=== PATIENT | male | born 1990 | race Caucasian/White ===

== ENCOUNTER 2017-10-26 13:25 | Emergency (ER) | payer SELFPAY ==
[~2017-10-26] VITALS: Ht 172.7 cm; Wt 173.0 kg
[2017-10-26 13:28] VITALS: TEMP 36.8; Ht 172.7 cm; Wt 173.0 kg
--- NOTE | 2017-10-26 14:27 | EMERGENCY ROOM VISIT NOTE ---
History First contact with patient: 13:56 Chief Complaint: FLU LIKE SX Stated Complaint: COUGH,RUNNY NOSE,SORE RIBS History of Present Illness The patient is a 27 year old male who presents to the Emergency Room with complaints of cough 1 week. The patient reports that he has had a persistent cough for the past week, worsening over the past 2 days. The patient states that he has been having coughing fits and has a hard time catching his breath when this occurs. He reports pain throughout his back when he coughs. There is no pain at rest. The cough is worse when he is lying down or sitting. He is a smoker but states that he has not smoked any cigarettes since this began. He does report intermittent fevers, especially in the morning. The cough has occasionally been productive of a small amount of phlegm. He began taking Mucinex yesterday. He has been taking NyQuil without relief. He rates the overall discomfort a 4/10. He denies earaches, sore throat, headache, neck pain , body aches or shortness of breath. He did not receive a flu vaccine this year. He does reports that several family members are sick with similar symptoms. He denies any history of asthma or COPD. Review of Systems A complete 10 point review of systems was reviewed with the patient with pertinent positives and negatives as per history of present illness. All else were negative. Past Medical/Surgical History Medical Problems: (1) No significant past medical history Surgical Problems: (1) No significant past surgical history Social History Smoking Status: Current Every Day Smoker Alcohol Use: occasionally Marital Status: in relationship Housing Status: lives with family Occupation Status: employed Current/Historical Medications Scheduled Benzonatate (Tessalon Perles), 1 CAP PO TID Scheduled PRN Hydrocodone W/ Homatropine (Hycodan 5/1.5MG 5 Ml), 5-10 ML PO Q4H PRN for Cough Physical Exam Vital Signs Date Time Temp Pulse Resp B/P (MAP) Pulse Ox O2 Delivery O2 Flow Rate FiO2 10/26/17 15:30 99 18 166/104 94 10/26/17 13:28 36.8 103 22 145/76 94 Physical Exam VITALS: Vitals are noted on the nurse's note and reviewed by myself. Vital signs stable. GENERAL: This is a 27-year-old male, in no acute distress, nondiaphoretic, well- developed well-nourished. SKIN: The skin was without rashes. EARS: External auditory canals clear, tympanic membranes pearly finnegan without erythema or effusion bilaterally. EYES: Pupils equal round and reactive to light and accommodation. NOSE: Patent, turbinates without inflammation or discharge. MOUTH: Mucous membranes moist. Tonsils are not enlarged. Pharynx without erythema or exudate. NECK: Supple without nuchal rigidity. No lymphadenopathy. HEART: Regular rate and rhythm without murmurs gallops or rubs. LUNGS: Clear to auscultation bilaterally without wheezes, rales or rhonchi. No retractions or accessory muscle use. NEURO: Patient was alert and oriented to person place and time. Medical Decision & Procedures ER Provider Diagnostic Interpretation: TWO VIEW CHEST CLINICAL HISTORY: Cough and fever. FINDINGS: PA and lateral chest radiographs are obtained. No prior studies are available for comparison at the time of dictation. The examination is degraded by large body habitus. The cardiomediastinal silhouette is unremarkable. The lungs and pleural spaces are clear. There is no pneumothorax. The bony thorax appears intact. IMPRESSION: No active disease in the chest. Laboratory Results Test 10/26/17 14:28 Influenza Type A Antigen Neg for Influ A (NEG) Influenza Type B Antigen Neg for Influ B (NEG) Medical Decision Differential diagnosis includes influenza, pneumonia, viral URI, among others. The patient is a 27-year-old male who presents today complaining of cough. Rapid influenza was negative. Chest x-ray was negative for pneumonia. Patient will be given Hycodan and Tessalon perles for symptomatic relief. Conservative measures were discussed. Based on the patient's presentation and work up, I feel the patient is stable for outpatient treatment. The patient was educated to return to the emergency department for any worsening of their current condition or new/concerning symptoms. He will follow up with his PCP. Medication Reconcilliation Current Medication List: was personally reviewed by me Blood Pressure Screening Patient's blood pressure: Elevated blood pressure Blood pressure disposition: Referred to PCP Impression Primary Impression: Upper respiratory infection Departure Information Dispostion Home / Self-Care Condition GOOD Prescriptions Hydrocodone W/ Homatropine (HYCODAN 5/1.5MG 5 ML) 1 Syp Syp 5-10 ML PO Q4H Y for Cough, #100 ML Prov: Pura Bailey PA-C 10/26/17 Benzonatate (TESSALON PERLES) 100 Mg Cap 1 CAP PO TID for 10 Days, #30 CAP Prov: Pura Bailye PA-C 10/26/17 Referrals No Doctor, Assigned (PCP) Patient Instructions [facility] Problem Qualifiers Primary Impression: Upper respiratory infection URI type: unspecified viral URI Qualified Codes: J06.9 - Acute upper respiratory infection, unspecified
[2017-10-26 14:56] LABS: INFLUENZA B ANTIGEN Neg for Influ B (NEG)
--- NOTE | 2017-10-26 14:58 | DIAGNOSTIC IMAGING REPORT ---
TWO VIEW CHEST CLINICAL HISTORY: Cough and fever. FINDINGS: PA and lateral chest radiographs are obtained. No prior studies are available for comparison at the time of dictation. The examination is degraded by large body habitus. The cardiomediastinal silhouette is unremarkable. The lungs and pleural spaces are clear. There is no pneumothorax. The bony thorax appears intact. IMPRESSION: No active disease in the chest. Electronically signed by: Juan Manuel Etienne M.D. 10/26/2017 2:56 PM Dictated Date/Time: 10/26/2017 2:56 PM
[2017-10-26] MEDS ORDERED: BENZ100C18 PO (15:26)
[2017-10-26] MEDS ORDERED: HYDR5SYP11 PO (15:26)
[2017-10-26 15:30] VITALS: BP 166/104; PULSE 99; O2SAT 94
== END 2017-10-26 15:39 | disposition home or self-care (01) ==
LOC: C.EDB 13:26 → C.EDC 15:39
DX: J06.9 Acute upper respiratory infection, unspecified (principal); F17.210 Nicotine dependence, cigarettes, uncomplicated

== ENCOUNTER → 2018-04-30 | Day surgery (SDC) | payer OTHER ==
[2018-04-28 15:10] VITALS: BMI 58.0
[~2018-04-30] VITALS: Ht 172.7 cm; Wt 172.7 kg
[~2018-04-30] MED LIST: ATROPINE SULFATE 0.1 MG/ML 5ML SYR IV PRN; EpHEDrine SULFATE INJ 50 MG/ML AMP IV PRN; FENTANYL CITRATE INJ 50 MCG/1 ML 2 ML VIAL IV PRN; FENTANYL CITRATE INJ 50 MCG/1 ML 2 ML VIAL ONE; FLUMAZENIL 0.1 MG/1 ML 10 ML VIAL IV PRN; LABETALOL HCL IV 5 MG/ML 20ML IV PRN; LIDOCAINE HCL 2% 2 ML VIAL (20MG/ML) ONE; MIDAZOLAM HCL 1 MG/ML 2ML VIAL ONE; NALOXONE HCL 0.4 MG/1 ML VIAL/CARP IV PRN; ONDANSETRON INJ 2 MG/ML 2 ML VIAL IV PRN; ONDANSETRON INJ 2 MG/ML 2 ML VIAL ONE; PROMETHAZINE HCL INJ 12.5 MG in SODIUM CHLORIDE 0.9% 50ML 50 ML IV PRN; PROPOFOL IV EMULSION 10 MG/ML 20 ML VIAL ONE
[2018-04-30 10:26] VITALS: BP 145/87; PULSE 76; TEMP 36.7; O2SAT 97; Ht 172.7 cm; Wt 172.7 kg
--- NOTE | 2018-04-30 11:07 | Endo History and Physical ---
History & Physical Date of Service: Apr 30, 2018. Chief Complaint: Reflux Referring Physician: History of Present Illness The patient was referred by his bariatric clinic for evaluation of reflux and presurgical planning. He does admit to episodes of heartburn and has never been on the medication. He denies having difficulty swallowing pain with swallowing fevers chills or sweats. There is no history of stomach cancer or esophageal cancer in his family. He denies having difficulty with swallowing or pain with swallowing. Past Surgical History Hx Cardiac Surgery: No Hx Internal Defibrillator: No Hx Pacemaker: No Hx Abdominal Surgery: No Hx Cancer Surgery: No Hx Thoracic Surgery: No Hx Orthopedic: No Hx Urinary Tract Surgery: No Social History Smoking Status: Former Smoker Hx Substance Use: No Hx Alcohol Use: No Allergies Coded Allergies: No Known Allergies (Unverified , NONE, 04/30/18) Current Medications Reported Home Medications Medications Dose Route/Sig Max Daily Dose Days Date Category No Active Prescriptions or Reported Medications Rx Vital Signs Weight (Kilograms): 172.73 Height (Feet): 5 Height (Inches): 8 Date Time Temp Pulse Resp B/P (MAP) Pulse Ox O2 Delivery O2 Flow Rate FiO2 04/30/18 10:26 36.7 76 20 145/87 (106) 97 Room Air Physical Exam General Appearance: no apparent distress Respiratory/Chest: Auscultation: deminished air movement Cardiovascular: Heart Auscultation: RRR Abdomen: Inspection & Palpation: soft Assessment and Plan Patient referred for open access upper endoscopy due to history of reflux and presurgical planning. We have discussed the risks and benefits of upper endoscopy to include bleeding, infection, perforation, aspiration and cardiovascular complications. Due to the patient's obesity is at increased risk of cardiovascular and respiratory problems and is to have his procedure performed in the OR.
--- NOTE | 2018-04-30 11:31 | [facility] Post Operative Brief Note ---
Immediate Operative Summary Operative Date Apr 30, 2018. Pre-Operative Diagnosis reflux Post-Operative Diagnosis Mild antral gastritis Normal esophagus Procedure(s) Performed Esophagogastroduodenoscopy Surgeon Dr. Gainni Koenig Director Print Surgeon(s) none Estimated Blood Loss 0 ml Findings Consistent with Post-Op Diagnosis Specimens 1) Gastric antrum (r/o H pylori) Drains None Anesthesia Type General Complication(s) none Disposition Accompanied Pt To Recover: no Disposition: Recovery Room / PACU
--- NOTE | 2018-04-30 11:33 | Discharge Instructions ---
Endoscopy Patient Instructions Date / Procedure(s) Performed Apr 30, 2018. EGD Allergy Information Coded Allergies: No Known Allergies (Unverified , NONE, 04/30/18) Discharge Date / Findings Apr 30, 2018. Normal Esophagus Mild gastritis Medication Instructions Omeprazole 20 mg per day for 6 to 8 weeks Provider Instructions Activity Restrictions - No exercising or heavy lifting for 24 hours. - Do not drink alcohol the day of the procedure. - Do not drive a car or operate machinery until the day after the procedure. - Do not make any important decisions or sign important papers in 24 hours after the procedure. Following Day: - Return to full activity which may include returning to work/school. Diet Start your diet with liquids and light foods (jello, soup, juice, toast). Then eat your usual diet if not nauseated. Treatment For Common After Affects For mild abdominal pain, bloating, or excessive gas: - Rest - Eat lightly - Lie on right side Follow-Up Information Follow-up with PCM and Bariatric Clinic as previously scheduled Try Omeprazole 20 mg per day for 6 to 8 weeks Anesthesia Information What You Should Know You have had a procedure that required some medicine to reduce anxiety and discomfort. This treatment is called moderate sedation. After receiving the treatment, you may be sleepy, but you will be able to breathe on your own. The effects of the treatment may last for several hours. Follow these instructions along with Activity/Diet recommendations noted above: * Do NOT do anything where dizziness or clumsiness would be dangerous. * Rest quietly at home today, then you can be up and about tomorrow. * Have a responsible person stay with you the rest of today. * You may have had an I.V. today. If so, you may take the dressing off later today. Recommendations Call your doctor if: * Trouble breathing * Continuous vomiting for more than 24 hours * Temperature above 101 degrees * Severe abdominal pain or bloating * Pain not relieved by pain medicine ordered * There is increased drainage or redness from any incision * A large amount of rectal bleeding greater than 2-3 tablespoons. (If you had a polyp/s removed or have hemorrhoids, a small amount of blood - from the rectum is to be expected.) * You have any unanswered questions or concerns. IN THE EVENT OF A SERIOUS EMERGENCY, GO TO THE NEAREST EMERGENCY ROOM Your discharge instructions were prepared by provider Gianni Koenig. Patient Instructions Signature Page Erich Kauffman Patient (or Guardian) Signature/Date: I have read and understand the instructions given to me by my caregivers. Caregiver/RN/Doctor Signature/Date: The above-named patient and/or guardian has received patient instructions on this date. + Original Patient Signature Page (only) stays with chart. Please make copy for patient.
--- NOTE | 2018-04-30 12:00 | GI REPORT ---
Patient Name: Erich Kauffman Procedure Date: 04/30/2018 11:20 AM Date of : 1990 Admit Type: Outpatient Age: 28 Gender: Male Attending MD: Gianni Koenig DO Procedure: Upper GI endoscopy Providers: Gianni Koenig DO Referring MD: Chip Tapia Indications: Suspected esophageal reflux, Preoperative assessment for bariatric surgery to treat morbid obesity Medicines: General Anesthesia Complications: No immediate complications. Estimated blood loss: Minimal. Estimated Blood Loss: Estimated blood loss was minimal. Procedure: Pre-Anesthesia Assessment: - Prior to the procedure, a History and Physical was performed, and patient medications, allergies and sensitivities were reviewed. The patient's tolerance of previous anesthesia was reviewed. - The risks and benefits of the procedure and the sedation options and risks were discussed with the patient. All questions were answered and informed consent was obtained. - Patient identification and proposed procedure were verified prior to the procedure by the physician, the nurse and the food and beverage server. The procedure was verified in the procedure room. - Pre-procedure physical examination revealed no contraindications to sedation. - ASA Grade Assessment: III - A patient with severe systemic disease. - After reviewing the risks and benefits, the patient was deemed in satisfactory condition to undergo the procedure. - The anesthesia plan was to use general anesthesia. - Immediately prior to administration of medications, the patient was re-assessed for adequacy to receive sedatives. - The heart rate, respiratory rate, oxygen saturations, blood pressure, adequacy of pulmonary ventilation, and response to care were monitored throughout the procedure. - The physical status of the patient was re-assessed after the procedure. After obtaining informed consent, the endoscope was passed under direct vision. Throughout the procedure, the patient's blood pressure, pulse, and oxygen saturations were monitored continuously. The scope was introduced through the mouth, and advanced to the third part of duodenum. The upper GI endoscopy was accomplished without difficulty. The patient tolerated the procedure well. Findings: The examined esophagus was normal. The Z-line was regular and was found 40 cm from the incisors. The cardia, gastric fundus, gastric body and incisura were normal. Localized minimal inflammation characterized by granularity was found in the gastric antrum. Biopsies were taken with a cold forceps for histology. Estimated blood loss was minimal. The examined duodenum was normal. Impression: - Normal esophagus. - Z-line regular, 40 cm from the incisors. - Normal cardia, gastric fundus, gastric body and incisura. - Gastritis. Biopsied. - Normal examined duodenum. Recommendation: - Discharge patient to home (ambulatory). - Advance diet as tolerated today. - Await pathology results. - Try Prilosec (omeprazole) 20 mg PO daily for 6 weeks. - Return to primary care physician PRN. Gianni Koenig D.O. Gianni Koenig, 04/30/2018 12:00:16 PM This report has been signed electronically. Note Initiated On: 04/30/2018 11:20 AM Number of Addenda: 0 I attest to the content of the Intraoperative Record and orders documented therein, exceptions below {[id number]}
[2018-04-30 12:30] VITALS: BP 108/70; PULSE 75; TEMP 36.3; O2SAT 97
[2018-04-30 13:00] VITALS: BP 140/77; PULSE 76; TEMP 36.3; O2SAT 96
== END | disposition home or self-care (01) ==
LOC: C.ACU 09:55
PROVIDERS: ATTEND Internal Medicine Gastroenterology
DX: R10.9 Unspecified abdominal pain (principal); K29.50 Unspecified chronic gastritis without bleeding; K21.9 Gastro-esophageal reflux disease without esophagitis; G47.33 Obstructive sleep apnea (adult) (pediatric); E66.9 Obesity, unspecified; Z68.43 Body mass index [BMI] 50.0-59.9, adult; Z87.891 Personal history of nicotine dependence